=== PATIENT | female | born 1940 | race Caucasian/White ===

== ENCOUNTER 2017-03-14 16:33 | Emergency (ER) | payer OTHER ==
[~2017-03-14] VITALS: Ht 157.5 cm; Wt 79.4 kg
[2017-03-14 17:04] LABS: BASOPHILS # (AUTO) 0.1 /CMM (0.0-0.2); BASOPHILS % (AUTO) 0.8 % (0.0-2.0); EOSINOPHILS # (AUTO) 0.2 /CMM (0.0-0.7); EOSINOPHILS % (AUTO) 1.5 % (0.0-6.0); HEMATOCRIT 40 % (33-45); HEMOGLOBIN 13.2 g/dL (11.5-14.8); LYMPHOCYTES # (AUTO) 2.4 /CMM (0.8-4.8); LYMPHOCYTES % (AUTO) 23.4 % (20.0-44.0); MEAN CORPUSCULAR HEMOGLOBIN 29 PG (26.0-33.0); MEAN CORPUSCULAR HGB CONC 33 g/dl (31.0-36.0); MEAN CORPUSCULAR VOLUME 89 fL (82-100); MONOCYTES # (AUTO) 0.7 /CMM (0.1-1.30); MONOCYTES % (AUTO) 6.8 % (2.0-12.0); NEUTROPHILS # (AUTO) 6.7 /CMM (1.8-8.9); NEUTROPHILS % (AUTO) 67.5 % (43.0-81.0); PLATELET COUNT (AUTO) 352 /CMM (150-450); RDW COEFFICIENT OF VARIATION 12.3 (11.5-15.0); RED BLOOD CELL COUNT(AUTO) 4.57 MIL/uL (4.0-5.2); WHITE BLOOD COUNT (AUTO) 10.1 K/uL (4.3-11.0)
[2017-03-14 17:13] LABS: CALCIUM, SERUM 9.4 mg/dL (8.5-10.1); CARBON DIOXIDE 29 mmol/L (21-32); CHLORIDE 106 mmol/L (98-107); CREATININE 0.7 mg/dL (0.6-1.3); GLUCOSE 118 mg/dL (74-106); POTASSIUM 4.7 mmol/L (3.5-5.1); SODIUM SERUM 142 mmol/L (136-145); UREA NITROGEN, BLOOD 24 mg/dL (7-18)
[2017-03-14 17:19] LABS: ALANINE AMINOTRANSFERASE 16 U/L (12-78); ALBUMIN 4.4 g/dL (3.4-5.0); ALCOHOL, BLOOD < 3 mg/dL (0-0); ALKALINE PHOSPHATASE 72 U/L (46-116); ASPARTATE AMINOTRANSFERASE 17 U/L (15-37); BILIRUBIN,DIRECT 0.2 mg/dL (0.0-0.2); BILIRUBIN,TOTAL 1.1 mg/dL (0.2-1.0); TOTAL PROTEIN, SERUM 8.1 g/dL (6.4-8.2)
[2017-03-14 17:20] LABS: ACETAMINOPHEN 0 ug/ml (10-30); SALICYLATE 1.2 mg/dL (2.8-20.0)
[2017-03-14 17:39] LABS: APPEARANCE,URINE Clear (CLEAR); BILIRUBIN,URINE Negative (NEGATIVE); BLOOD, URINE Negative Ery/uL (NEGATIVE); COLOR,URINE Yellow (YELLOW); KETONES,URINE Negative (NEGATIVE); LEUKOCYTE ESTERASE ,URINE Negative (NEGATIVE); NITRITE, URINE Negative (NEGATIVE); PH,URINE 5.5 (5.0-8.0); PROTEIN,URINE Negative (NEGATIVE); UGLUCOSE Negative (NEGATIVE); UROBILINOGEN,URINE 0.2 EU/dL (0.2)
[2017-03-14 17:43] LABS: CANNABINOID, URINE NEGATIVE (NEGATIVE); PHENCYCLIDINE SCREEN,URINE NEGATIVE (NEGATIVE)
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
--- NOTE | 2017-03-14 18:45 | NUR ---
RESTING IN ER BED BUT REPEATEDLY SAYING "I WANT TO GO HOME". AWAITING PSYCH EVAL FROM [facility].
--- NOTE | 2017-03-14 18:54 | NUR ---
TONG TRANSFER [facility] - [phone] [facility]ER FAX - [phone]; FAX INFO IF ON [phone]
[2017-03-14] MEDS ORDERED: LORAZEPAM INJ 2 MG/ML VIAL ONE (19:11)
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
[2017-03-14] MEDS ORDERED: LORAZEPAM INJ 2 MG/ML VIAL IM ONE (19:30)
--- NOTE | 2017-03-14 19:56 | NUR ---
DAUGHTER AT BEDSIDE
--- NOTE | 2017-03-14 20:28 | NUR ---
CALLED [facility] AT [phone], SPOKE WITH JAMA, SHE SAID OUR [employer]JECT SYSTEMS ENGINEER CAN SEE THE PT AND IF SHE PLACES THE PT ON A HOLD TO CALL HER BACK AND THEY WILL FIND PLACEMENT, IF WE DID NOT HAVE SOMEONE AVAILABLE THEY COULD SEND OUT A PET TEAM.
--- NOTE | 2017-03-14 20:34 | NUR ---
PINKY AT BEDSIDE
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
--- NOTE | 2017-03-14 21:14 | NUR ---
[facility] AT [phone]
--- NOTE | 2017-03-14 23:09 | NUR ---
RESTING QUIETLY, NAD NOTED. VSS.
[2017-03-15] MEDS ORDERED: OLANZAPINE 10 MG VIAL IM ONE ×2 (00:30→00:48)
--- NOTE | 2017-03-15 00:50 | NUR ---
CALLED NURSING SUP FOR ZYPREXA INJECTABLE; NONE AVAILABLE IN [facility]
--- NOTE | 2017-03-15 01:01 | NUR ---
SPOKE WITH LIV AT [facility]; SHE IS STILL WORKING ON GETTING A BED. WILL CALL BACK WITH AN UPDATE WHEN SHE HAS A BED.
--- NOTE | 2017-03-15 02:11 | NUR ---
Patient is resting comfortably in bed with eyes closed. Easily aroused. VSS
--- NOTE | 2017-03-15 02:46 | NUR ---
PT AMBULATED WITH ASSIST TO ER BED 06. PT WILL BE LEFT UNRESTRAINED GIVEN CLOSE PROXIMITY TO NURSES STATION. EDUCATED PT THAT SHE MUST STAY CALM AND COMPLIANT IF SHE STAYS UNRESTRAINED.
--- NOTE | 2017-03-15 03:10 | NUR ---
RECEIVED REPORT FROM JANINE AGUILAR FOR CONTINUE OF CARE. PT CALM AND COMPLIANT.
--- NOTE | 2017-03-15 03:20 | NUR ---
LIV FROM [facility] CALLED ASKING FOR UPDATED VITALS AND EKG/TROPONIN RESULTS. NO EKG OR TROPONIN WERE ORDERED FOR MEDICAL CLEARANCE. PT HAS HAD NO C/O CP, SOB, OR UNSTABLE VITALS. LIV NOTIFIED THAT PER PT IS FULLY MEDICALLY CLEARED ALREADY AND WILL NOT HAVE FURTHER TESTS. AWAITING BED PLACEMENT. REPORT GIVEN TO JAMIL MEHTA FOR JAROD.
--- NOTE | 2017-03-15 03:38 | NUR ---
CHATHAM [facility] CALLED RE: PT GOING TO [facility]. THE [facility] IS REQUESTING ADDITIONAL TESTS THAT DR. HENDERSON DETERMINED ARE INAPPROPRIATE. CHATHAM TRANSFERED ME TO THE [facility] AND I SPOKE TO THE NURSE THERE WHO STATED THAT THE DR. ORDERING THE TESTS WAS DR. OBRIEN WHO COULD BE REACHED AT [phone]. DR. HENDERSON IS AWARE.
--- NOTE | 2017-03-15 03:42 | NUR ---
DR. HENDERSON IS SPEAKING TO DR. OBRIEN.
--- NOTE | 2017-03-15 04:43 | NUR ---
REPORT GIVEN TO NURSE NELSON ON BEHALF OF PRIMARY NURSE JAMIL.
--- NOTE | 2017-03-15 05:46 | NUR ---
REPORT GIVEN TO [facility] EMT, WITH ALL D/C PAPER. PT AWARE OF TRANSFER WITH ALL BELONGINGS. PER [facility] EMT'S TOOK OVER CARE.
[2017-03-15] MEDS ORDERED: LORAZEPAM INJ 2 MG/ML VIAL ONE (05:52)
[2017-03-15] MEDS ORDERED: LORAZEPAM INJ 2 MG/ML VIAL IV ONE (06:00)
[2017-03-15 06:45] VITALS: BP 159/88
== END 2017-03-15 06:46 ==
LOC: ER 16:36
DX: F91.1 Conduct disorder, childhood-onset type (principal); F81.81 Disorder of written expression; I10 Essential (primary) hypertension; Z88.0 Allergy status to penicillin; Z88.8 Allergy status to other drugs, medicaments and biological substances
CPT/HCPCS: 36415; 80048-TC; 80076-TC; 80305; 81000-TC; 85025-TC; A4606; G0480; G6039-TC; J2060; J3490; Z7610